=== PATIENT | female | born 1990 | race African-American/Black ===

== ENCOUNTER 2016-03-14 17:01 | Emergency (ER) | payer OTHER ==
[~2016-03-14] VITALS: Ht 160 cm; Wt 95.3 kg
[2016-03-14 17:16] LABS: URINE BILIRUBIN NEGATIVE (Negative); URINE BLOOD 2+ (Negative); URINE COLOR YELLOW; URINE GLUCOSE-RANDOM* NEGATIVE (Negative); URINE KETONES NEGATIVE (Negative); URINE NITRITE NEGATIVE (Negative); URINE PROTEIN (DIPSTICK) NEGATIVE (Negative); URINE SPECIFIC GRAVITY 1.025 (1.003-1.035); URINE UROBILINOGEN 0.2 E.U./dl (0.2-1.0)
[2016-03-14 17:32] LABS: BACTERIA 1-9 Few /HPF (None Seen); CASTS None Seen /LPF (None Seen); CRYSTALS None Seen /LPF (None Seen); SQUAMOUS 0-3 Few /LPF (0-3); URINE RBC 0-2 Rare /HPF (0-2); URINE WBC None Seen /HPF (0-5)
[2016-03-14 17:55] LABS: ABSOLUTE NEUTROPHILS 3.7 thou/uL (1.4-8.2); BASOPHILS 1.1 % (0.0-2.0); EOSINOPHILS 1.4 % (0.0-3.0); HEMATOCRIT 40.8 % (37.0-47.0); HEMOGLOBIN 13.8 gm/dL (12.0-15.0); LYMPHOCYTES 34.2 % (24.0-44.0); MCH 31.3 pg (26.0-34.0); MCHC 33.9 % (28.0-37.0); MCV 92.5 fL (80.0-100.0); MONOCYTES 6.7 % (1.0-8.0); PLATELET COUNT 241 thou/uL (150-400); POLYS 56.6 % (36.0-66.0); RBC 4.42 mil/uL (4.20-5.00); RDW 13.7 % (10.5-14.5); WBC 6.5 thou/uL (4.0-11.0)
[2016-03-14 18:03] LABS: MANUAL DIFF NO
[2016-03-14] MEDS ORDERED: NAPROSYN500 MG PO (18:51)
[2016-03-14 19:01] VITALS: BP 113/78
== END 2016-03-14 19:02 | disposition home or self-care (01) ==
LOC: ER 17:01
PROVIDERS: Nurse Practitioner
DX: N94.6 Dysmenorrhea, unspecified (principal); F10.99 Alcohol use, unspecified with unspecified alcohol-induced disorder

== ENCOUNTER 2016-06-04 16:23 | Emergency (ER) | payer OTHER ==
[~2016-06-04] VITALS: Ht 160 cm; Wt 90.7 kg
--- NOTE | ~2016-06-04 | EKG ---
[address] [address] [facility] [address] ELECTROCARDIOGRAM REPORT Name: KOURTNEYAMARILIS Chitra Room #: [facility] [id number] Admission: 06/04/16 Attend Phys: Discharge: 06/04/16 Date of : [birth year] Report #: [id number] THIS REPORT FOR: //name// [facility] ED Test Date: 2016-06-04 Test Time: 16:41:25 Pat Name: AMARILIS OCONNELL Department: Room: Gender: F [employer] Outside: [employer] : 1990 Requested By: Juan Bhakta Order Number: [id number] MD: Paulie Terrell Measurements Intervals [place] Rate: 101 P: 75 [place]: 149 QRS: 14 QRSD: 85 T: 59 QT: 333 QTc: 432 Interpretive Statements Sinus tachycardia otherwise no significant abnormality No previous ECG available for comparison Electronically Signed On 06-05-2016 8:46:52 CDT by Paulie Terrell [email or web address] <ELECTRONICALLY SIGNED> By: Paulie Terrell MD, [facility] 06/05/16 0846 [id number] Paulie Terrell MD, FACC /EPI
[~2016-06-04 16:23] MED LIST: NAPROSYN500 MG PO
[2016-06-04 18:12] LABS: ABSOLUTE NEUTROPHILS 5.5 thou/uL (1.4-8.2); BASOPHILS 0.8 % (0.0-2.0); EOSINOPHILS 0.8 % (0.0-3.0); LYMPHOCYTES 23.7 % (24.0-44.0); MCH 31.7 pg (26.0-34.0); MCHC 34.1 g/dL (28.0-37.0); MONOCYTES 7.9 % (1.0-8.0); PLATELET COUNT 254 thou/uL (150-400); POLYS 66.8 % (36.0-66.0); RBC 4.41 mil/uL (4.20-5.00); RDW 14.1 % (10.5-14.5); WBC 8.2 thou/uL (4.0-11.0)
[2016-06-04 18:17] LABS: MANUAL DIFF NO
[2016-06-04 18:21] LABS: URINE BILIRUBIN NEGATIVE (Negative); URINE BLOOD 1+ (Negative); URINE COLOR YELLOW; URINE GLUCOSE-RANDOM* NEGATIVE (Negative); URINE KETONES NEGATIVE (Negative); URINE NITRITE NEGATIVE (Negative); URINE PROTEIN (DIPSTICK) NEGATIVE (Negative); URINE SPECIFIC GRAVITY <= 1.005 (1.003-1.035); URINE UROBILINOGEN 0.2 E.U./dl (0.2-1.0)
[2016-06-04 18:23] LABS: ANION GAP 11 mmol/L (7-16); BUN 9 mg/dL (7-18); CALCIUM 9.3 mg/dL (8.5-10.1); CHLORIDE 107 mmol/L (98-107); CO2 23 mmol/L (21-32); CREATININE 0.9 mg/dL (0.6-1.0); GLUCOSE 90 mg/dL (74-106); POTASSIUM 3.8 mmol/L (3.5-5.1); SODIUM 141 mmol/L (136-145)
[2016-06-04 18:27] LABS: ALBUMIN 3.6 g/dL (3.4-5.0); ALKALINE PHOSPHATASE 60 U/L (46-116); DIRECT BILIRUBIN < 0.1 mg/dL (<0.1-0.3); SALICYLATE 4.6 mg/dL (2.8-20.0); SGOT 14 U/L (15-37); SGPT 16 U/L (30-65); TOTAL BILIRUBIN 0.5 mg/dL (<0.1-1.0); TOTAL PROTEIN 7.1 g/dL (6.4-8.2)
[2016-06-04 18:29] LABS: BACTERIA None Seen /HPF (None Seen); CASTS None Seen /LPF (None Seen); CRYSTALS None Seen /LPF (None Seen); SQUAMOUS 0-3 Few /LPF (0-3); URINE RBC 3-10 Few /HPF (0-2); URINE WBC 0-5 Rare /HPF (0-5)
[2016-06-04 18:30] LABS: AMP/METHAMP Negative (Negative); BARBITURATES Negative (Negative); BENZODIAZEPINES Negative (Negative); COCAINE Negative (Negative); METHADONE Negative (Negative); OPIATES Negative (Negative); PCP Negative (Negative); THC POSITIVE (Negative)
[2016-06-04 18:32] LABS: ACETAMINOPHEN < 2 ug/mL (10-30)
[2016-06-04 21:31] VITALS: BP 120/78
== END 2016-06-04 21:31 | disposition short-term general hospital (02) ==
LOC: ER 16:23
PROVIDERS: Physician Assistant
DX: F41.9 Anxiety disorder, unspecified (principal); F19.90 Other psychoactive substance use, unspecified, uncomplicated; R45.851 Suicidal ideations; Z90.89 Acquired absence of other organs

== ENCOUNTER 2016-06-13 10:19 | Emergency (ER) | payer OTHER ==
[~2016-06-13] VITALS: Ht 160 cm; Wt 90.7 kg
[2016-06-13] MEDS ORDERED: SERTRALINE HCL100 MG PO (10:36)
[2016-06-13 10:47] LABS: URINE BLOOD 2+ (Negative); URINE COLOR YELLOW; URINE GLUCOSE-RANDOM* NEGATIVE (Negative); URINE KETONES NEGATIVE (Negative); URINE NITRITE NEGATIVE (Negative); URINE PROTEIN (DIPSTICK) TRACE (Negative); URINE SPECIFIC GRAVITY 1.025 (1.003-1.035)
[2016-06-13 10:49] LABS: ICTOTEST (BILI CONFIRMATORY) Negative (Negative); URINE BILIRUBIN NEGATIVE (Negative)
[2016-06-13 11:16] LABS: BACTERIA 1-9 Few /HPF (None Seen); CASTS None Seen /LPF (None Seen); CRYSTALS None Seen /LPF (None Seen); SQUAMOUS 0-3 Few /LPF (0-3); URINE WBC 0-5 Rare /HPF (0-5)
[2016-06-13 11:55] LABS: ABSOLUTE NEUTROPHILS 3.9 thou/uL (1.4-8.2); BASOPHILS 0.5 % (0.0-2.0); EOSINOPHILS 1.3 % (0.0-3.0); HEMATOCRIT 37.1 % (37.0-47.0); HEMOGLOBIN 12.7 gm/dL (12.0-15.0); LYMPHOCYTES 23.8 % (24.0-44.0); MCH 31.8 pg (26.0-34.0); MCHC 34.4 g/dL (28.0-37.0); MCV 92.4 fL (80.0-100.0); MONOCYTES 10.8 % (1.0-8.0); PLATELET COUNT 290 thou/uL (150-400); POLYS 63.6 % (36.0-66.0); RBC 4.01 mil/uL (4.20-5.00); WBC 6.2 thou/uL (4.0-11.0)
[2016-06-13 11:57] LABS: MANUAL DIFF NO
[2016-06-13 12:11] LABS: ALBUMIN 3.2 g/dL (3.4-5.0); CALCIUM 8.7 mg/dL (8.5-10.1); CREATININE 0.9 mg/dL (0.6-1.0); POTASSIUM 3.6 mmol/L (3.5-5.1); TOTAL BILIRUBIN 0.3 mg/dL (<0.1-1.0); TOTAL PROTEIN 7.2 g/dL (6.4-8.2)
[2016-06-13] MEDS ORDERED: PEPCID20 MG PO (12:19)
[2016-06-13] MEDS ORDERED: ONDANSETRON HCL4 M2 PO (12:19)
[2016-06-13 12:28] VITALS: BP 140/90
== END 2016-06-13 12:29 | disposition home or self-care (01) ==
LOC: ER 10:19
PROVIDERS: Physician Assistant
DX: R11.2 Nausea with vomiting, unspecified (principal); R19.7 Diarrhea, unspecified; R10.84 Generalized abdominal pain; F41.9 Anxiety disorder, unspecified; E89.0 Postprocedural hypothyroidism